=== PATIENT | male | born 1990 | race African-American/Black ===

== ENCOUNTER 2021-08-20 20:12 | Emergency (ER) | payer OTHER ==
[~2021-08-20] VITALS: Ht 188 cm; Wt 75.0 kg
[2021-08-20 20:23] VITALS: BP 121/79
[2021-08-20] MEDS ORDERED: TETANUS, DIPHTHERIA, PERTUSSIS VAC/PF 0.5ML (>10YR OLD) IM ONE (20:45)
[2021-08-20] MEDS ORDERED: LIDOCAINE HCL/EPINEPHRINE 1%-EPI 1:100,000 20 ML VIAL INFIL ONE (20:45)
[2021-08-20] MEDS: ACETAMINOPHEN 325MG TABLET PO ONE ×2 (21:05→21:12)
== END 2021-08-21 00:03 | disposition home or self-care (01) ==
LOC: ER 20:12
DX: S01.01XA Laceration without foreign body of scalp, initial encounter (principal); Y00.XXXA Assault by blunt object, initial encounter; Y93.89 Activity, other specified; Y92.488 Other paved roadways as the place of occurrence of the external cause
CPT/HCPCS: 12011; 70450; 99284; J3490; Z7610